=== PATIENT | female | born 1950 | race Caucasian/White ===

== ENCOUNTER 2018-10-20 05:15 | Inpatient (IN) ==
--- NOTE | 2018-10-14 16:43 | EKG Report ---
Test Performed on : 10/14/2018 3:43:02 PM Test Reason : PAT Blood Pressure : / mmHG Vent. Rate : 078 BPM Atrial Rate : 078 BPM P-R Int : 132 ms QRS Dur : 072 ms QT Int : 406 ms P-R-T Axes : 074 031 069 degrees QTc Int : 462 ms Normal sinus rhythm. Nonspecific T wave abnormality Abnormal ECG When compared with ECG of 15-NOV-2013 11:51, Nonspecific T wave abnormality no longer evident in Inferior leads Nonspecific T wave abnormality, worse in Lateral leads Confirmed by Pete BRIZUELA, Mika Velasco ([id number]) on 10/15/2018 7:11:35 AM
[2018-10-20] MEDS ORDERED: KEFZOL 1 GM/D5W 1 GM/50 ML IVPB ONE (06:01)
[2018-10-20] MEDS ORDERED: LR 1,000 ML ONE (06:01)
[2018-10-20] MEDS ORDERED: DIPRIVAN 1% ONE (06:39)
[2018-10-20] MEDS ORDERED: XYLOCAINE-MPF 2% ONE (06:40)
[2018-10-20] MEDS ORDERED: ROBINUL ONE (06:40)
[2018-10-20] MEDS ORDERED: SENSORCAINE-MPF 0.5%/EPI 1:200,000 ONE (06:44)
[2018-10-20] MEDS ORDERED: NS 0 ML ONE (06:44)
[2018-10-20] MEDS ORDERED: NS 250 ML ONE (06:47)
[2018-10-20] MEDS ORDERED: VERSED ONE (06:47)
[2018-10-20] MEDS ORDERED: XYLOCAINE 1% ONE (06:58)
[2018-10-20] MEDS ORDERED: ZOFRAN IV ONE (07:30)
[2018-10-20] MEDS ORDERED: ZOFRAN IV PRN (08:40)
[2018-10-20] MEDS ORDERED: NORCO-7.5 PO PRN (08:40)
[2018-10-20 11:47] LABS: BASO# 0.02 X1000 (0.0-0.2); BASO% 0.1 % (0.0-0.8); HEMOGLOBIN 11.8 g/dL (12.0-16.0); IMM GRAN# 0.07 X1000 (0.0-0.04); IMM GRAN% 0.4 % (0.0-0.5); LYMPH# 1.69 X1000 (1.2-3.4); LYMPH% 9.6 % (20.5-51.1); MCH 30.2 PG (27-31); MCHC 31.9 g/dL (33-37); MCV 94.6 FL (81-99); MONO# 0.51 X1000 (0.11-0.59); MONO% 2.9 % (1.7-9.3); PLT 345 X1000 (130-400); RBC 3.91 XMIL (4.2-5.4); RDW 14.8 % (11.5-14.5); WBC 17.69 X1000 (4.8-10.8)
[2018-10-20 11:48] LABS: INR 1.04; PROTIME 14.4 Seconds (11.0-16.0)
[2018-10-20 11:49] LABS: PTT 26.2 Seconds (22.3-41.8)
[2018-10-20 11:52] LABS: ALLEN TEST YES; BE -2.6 mmoll (-3.0-3.0); BLOOD TYPE ARTERIAL; HCO3-(ACT) 22.8 mmoll (20.0-26.0); METHB 0.6 % (0.0-1.5); O2(CT) 18.7 mL/dL (15.0-23.0); O2HB 92.6 % (95.0-99.0); PCO2(98.6) 36 mmHg (35-45); PO2(98.6) 67 mmHg (60-100); SAMPLE BLOOD; SAO2 94.4 % (95.0-100.0); THB 14.4 g/dL (11.5-17.4); pH(98.6) 7.39 (7.35-7.45)
[2018-10-20 11:54] LABS: MODALITY CANNULA
[2018-10-20 12:06] LABS: ALB/GLOB RATIO 0.5; ALBUMIN 2.5 g/dL (3.5-5.0); CALCIUM 8.4 mg/dL (8.8-10.2); CREATININE 1.1 mg/dL (0.5-0.9); MAGNESIUM 2.3 mg/dL (1.5-2.7); POTASSIUM 4.6 mmol/L (3.5-5.1); TOTAL BILIRUBIN 0.3 mg/dL (0.20-1.00); TOTAL PROTEIN 7.4 g/dL (6.3-8.3)
[2018-10-20 12:21] LABS: BANDS 2 % (0-1); LYMPHS 6 % (21-51); SEGS 92 % (42-75)
[2018-10-20 12:25] LABS: FREE T4 1.38 ng/dL (0.93-1.70)
--- NOTE | 2018-10-20 12:47 | EKG Report ---
Test Performed on : 10/20/2018 12:30:11 PM Test Reason : rythm evaluation Blood Pressure : / mmHG Vent. Rate : 069 BPM Atrial Rate : 069 BPM P-R Int : 150 ms QRS Dur : 066 ms QT Int : 494 ms P-R-T Axes : 083 007 039 degrees QTc Int : 529 ms Normal sinus rhythm. Nonspecific ST and T wave abnormality Abnormal ECG When compared with ECG of 14-OCT-2018 15:43, Nonspecific T wave abnormality now evident in Inferior leads QT has lengthened Confirmed by Pete BRIZUELA, Mika Velasco ([id number]) on 10/21/2018 7:02:24 AM
--- NOTE | 2018-10-20 13:20 | Diag Imaging Result Doc PS360 ---
EXAM: CHEST-2 VIEWS HISTORY: hypoxia TECHNIQUE: Chest two views COMPARISON: 09/21/2018 FINDINGS: The lungs are well expanded. The heart is not enlarged. Interval placement of a right jugular portacatheter. The tip lies in the superior vena cava just above the clavicle. No pneumothorax. No change in the right paratracheal/perihilar mass. The vessels are not distended. There are no infiltrates. No pleural effusions. IMPRESSION: No postprocedural pneumothorax. Electronically signed by Tee Jimenez 10/20/2018 1:17 PM
[2018-10-20] MEDS: DUONEB (A & A) INH SCH ×4 (15:21→23:49)
[2018-10-20] MEDS: TESSALON PO PRN ×2 (17:22→20:23)
[2018-10-20] MEDS ORDERED: ROCEPHIN 1 GM in NS 50 ML IV SCH (17:30)
--- NOTE | 2018-10-20 17:54 | HISTORY AND PHYSICAL ---
This is a patient of mine I have known for over 20 years. Recently discovered she has right almost midline lung cancer and she was sent over to get a venous port. Noted she was very short of breath. We are going to need to try and get her some oxygen at home. They are trying to keep going on chemotherapy fairly quickly given the quick advance of the tumor and also involving the central structures. PAST MEDICAL HISTORY: 1. Status post vaginal hysterectomy in 1975. 2. History of hypertension. 3. 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 4. Sepsis DIC prolonged hospitalization back in the and had significant vascular arterial insufficiency I think in her left leg. performed some surgery and she made remarkable recovery. 5. Left lower extremity ischemia secondary DIC status post arterial bypass per . 6. Osteoarthritis. 7. Depression and anxiety. 8. Recent discovery of lung cancer. ALLERGIES: No known drug allergies. FAMILY HISTORY: Father at 60 myocardial infarction, mother fair state of health lived to advanced age, history of heart problems in father mother, history diabetes mother and father, maternal grandfather, history of colon cancer in maternal aunt. No history of breast cancer. SOCIAL HISTORY: Born in [facility] lived here most her life. She is 2 children. REVIEW OF SYSTEMS: General: She has loss of appetite, she has had more confusion in the last couple months probably related to some of the pain medicines and increased work of breathing or dyspnea on exertion. Cardiovascular: No chest pain or tachy palpitation. GI and : No gross hematuria, dysuria. Musculoskeletal endocrinologic: No significant history. EXAM: Afebrile, temperature 97.6 degrees, pulse 70, respirations 20, blood pressure 143/70. Pupils are equal and round.Lungs: Clear in all lung fajardo. Cardiovascular: Regular rhythm and rate. Abdomen: Soft, nondistended. She is got tachypnea and she does not have any wheezing but there is prolonged end expiratory phase. LAB: White count 17,690, hematocrit 37, platelet count 345,000, sodium 136, potassium 4.6, chloride 104, BUN 20, creatinine 1.1. AST was 30, ALT was 13, alkaline phosphatase 150. TSH is 0.52, T4 is 1.38, PT is 14.4. Blood gases pH is 7.39, pCO2 36, PO2 67, O2 saturation was 94%. Chest x-ray no postprocedural pneumothorax. Is right peritracheal repair hilar mass vessels not distended. ASSESSMENT AND PLAN: 1. New central hilar mass lung cancer. It looks like it is apparently non-small cell. Her jugular Port-A-Cath the tip lies in the superior vena cava just above the clavicle. There is no pneumothorax but she does have a peritracheal parahilar mass on the right. Is possibility of postobstructive pneumonia. She has hypoxemia so we are going to see if we get her supplemental O2. I think we better go ahead and treat her for pneumonia. I will put her on ceftriaxone 1 g now then q.24 hours and will get home health to see or social service see if we can arrange for her to have some supplementary O2. cc: Nilo Dwyer MD
--- NOTE | 2018-10-20 18:01 | OPERATIVE NOTE ---
PROCEDURE DATE: 10/20/2018 PREOPERATIVE DIAGNOSIS: Tracheal cancer. POSTOPERATIVE DIAGNOSIS: Tracheal cancer. PROCEDURE PERFORMED: Ultrasound-guided right internal jugular vein port placement, fluoroscopy less than 1 hour. ESTIMATED BLOOD LOSS: 10 mL. SPECIMENS: None. ANESTHESIA: MAC with local. INDICATION: This is a 67-year-old female with tracheal cancer who plans to undergo adjuvant therapy. OPERATIVE FINDINGS: 1. Ultrasound of the right neck showed a compressible internal jugular vein with no evidence of intraluminal thrombus. 2. Final fluoroscopic image showed good position of the catheter in the superior vena cava-atrial junction with no evidence of complication or postprocedural pneumothorax. OPERATIVE NOTE: Risks, benefits, alternatives were discussed with the patient. She consented to the procedure. She was seen preoperatively and surgical site was confirmed. She was taken to the operating room, placed in the supine position, and IV anesthesia was administered. Bilateral neck and chest were prepped Betadine and draped in the usual fashion. Preincision antibiotics were confirmed. After a time-out, focused ultrasound was performed of the right neck. She was in Trendelenburg position. We accessed the internal jugular vein on the first pass. Dark, nonpulsatile venous blood was noted on return. The wire threaded easily and was confirmed on fluoroscopy to be in the right side of the heart. We did also confirm that it coursed directly into the vein prior to dilation of the catheter. We then created a subcutaneous pouch 2 fingerbreadths below the level of the clavicle and tunneled the catheter into incision from the chest to the incision made large in the neck. The tract was serially dilated and a catheter was advanced to the right side of the heart [*] good position. It was cut and trimmed and connected to the port with a fashion photographer device and placed in the subcutaneous pouch which was secured with Prolene suture 2-0. Confirmed that the port withdrew blood and flushed without resistance. Final fluoroscopic image was appropriate. We then closed the deep dermis with interrupted 3-0 Vicryl sutures. Skin was closed with 4-0 Monocryl. For both the neck and chest Dermabond was applied. Counts correct. She woken and transferred to the recovery room. I spoke with the family. cc: MD Nilo Son MD
[2018-10-20] MEDS: PULMICORT INH SCH (20:04)
[2018-10-20] MEDS: KLONOPIN PO SCH (20:22)
[2018-10-20] MEDS: XANAX PO SCH (20:23)
[2018-10-21] MEDS: DUONEB (A & A) INH SCH ×6 (04:24→23:40)
[2018-10-21 07:38] LABS: BASO# 0.04 X1000 (0.0-0.2); BASO% 0.2 % (0.0-0.8); EOS# 0.07 X1000 (0.0-0.7); EOS% 0.3 % (0.0-10.0); HEMATOCRIT 38.2 % (37.0-47.0); HEMOGLOBIN 12.1 g/dL (12.0-16.0); IMM GRAN# 0.06 X1000 (0.0-0.04); IMM GRAN% 0.3 % (0.0-0.5); LYMPH# 1.95 X1000 (1.2-3.4); LYMPH% 9.1 % (20.5-51.1); MCH 30.3 PG (27-31); MCHC 31.7 g/dL (33-37); MCV 95.5 FL (81-99); MONO# 0.28 X1000 (0.11-0.59); MONO% 1.3 % (1.7-9.3); MPV 10.3 FL (7.4-10.4); NEUT# 18.99 X1000 (1.4-6.5); NEUT% 88.8 % (42.2-75.2); PLT 307 X1000 (130-400); RDW 15.3 % (11.5-14.5); WBC 21.39 X1000 (4.8-10.8)
[2018-10-21 07:49] LABS: INR 1.1; PROTIME 15.1 Seconds (11.0-16.0); PTT 28.5 Seconds (22.3-41.8)
[2018-10-21 08:28] LABS: ALB/GLOB RATIO 0.5; ALBUMIN 2.6 g/dL (3.5-5.0); CALCIUM 8.9 mg/dL (8.8-10.2); CREATININE 1.1 mg/dL (0.5-0.9); POTASSIUM 4.7 mmol/L (3.5-5.1); TOTAL BILIRUBIN 0.55 mg/dL (0.20-1.00); TOTAL PROTEIN 7.4 g/dL (6.3-8.3)
[2018-10-21] MEDS: PERIDEX MT SCH ×2 (09:05→20:35)
[2018-10-21] MEDS: XANAX PO SCH ×2 (09:05→20:35)
[2018-10-21] MEDS: ZOLOFT PO SCH (09:05)
[2018-10-21] MEDS: COZAAR PO SCH (09:05)
[2018-10-21] MEDS: PULMICORT INH SCH ×2 (09:08→19:51)
[2018-10-21 09:59] LABS: BANDS 4 % (0-1); LYMPHS 2 % (21-51); SEGS 94 % (42-75)
[2018-10-21] MEDS: TESSALON PO PRN (10:04)
--- NOTE | 2018-10-21 13:02 | PROGRESS NOTE ---
DATE: 10/21/2018 SUBJECTIVE: Ms. Lujan appears to be aspirating when she drinks fluids. When she tries to eat, her lungs sound gurgly, so, I am going to keep her here, and I am going to ask Dr. Jose and Dr. Camargo their opinion on whether she needs PEG tube. She has a lung mass that is pressing on, I think, the central structures, and I will do a barium swallow and look at that. OBJECTIVE: Vital Signs: Temperature 98.7 degrees, pulse 84, respirations 16, blood pressure 125/60. Pupils are equal and round. Lungs are clear in all lung fajardo. Cardiovascular: Regular rhythm and rate without murmur or S3. Abdomen is soft. Skin is warm and dry. White count was up to 21,390. Her lungs are scattered rhonchi throughout all lung fajardo but it will clear some when she coughs. Cardiovascular: Regular rhythm and rate without murmur or S3. Abdomen is soft. ASSESSMENT AND PLAN: 1. She had a venous port placed, and she had some hypoxemia, so she is on O2. Concerned about aspiration. I am going to go ahead and put her empirically on some antibiotics. I will have her on ceftriaxone. I probably will change that to Zosyn. We will get a barium swallow, and we will consider what we need to do whether she needs PEG tube. 2. Lung cancer. Lung mass. Dr. Camargo has been following. Dr. Jose as well. It is non-small cell lung cancer. It is a peritracheal and perihilar mass on the right. Concerned about aspiration pneumonia and possibly even some postobstructive process. cc: Nilo Dwyre MD
--- NOTE | 2018-10-21 13:57 | Diag Imaging Result Doc PS360 ---
EXAM: CHEST-PORTABLE 10/21/2018 HISTORY: aspiration TECHNIQUE: AP portable at 1348 COMMENT: There is a large right paratracheal mass. There is a port on the right with its tip either in the distal internal jugular vein or innominate vein. There is ill-defined opacity over the left lower lobe which was not present on 10/20/2018. IMPRESSION: Left lower lobe pneumonia. Electronically signed by Luis Eduardo Munoz 10/21/2018 1:54 PM
[2018-10-21] MEDS ORDERED: ZOSYN ONE (14:18)
--- NOTE | 2018-10-21 14:25 | Diag Imaging Result Doc PS360 ---
BA SWALLOW-ESOPHAGUS - 10/21/2018 INDICATION: trouble swallowing TECHNIQUE: Double contrast esophagram. Total fluoroscopy time was 49 seconds. 61 images were obtained. COMPARISON: Chest CT 09/22/2018 FINDINGS: The large right paratracheal mediastinal mass is causing significant stricture of the esophagus at the level of the aortic arch. This is causing some delay in clearance of the hypopharynx and proximal esophagus. Distally, there is some tertiary wave formation compatible with presbyesophagus. No distal strictures or masses. The gastroesophageal junction is normally located. IMPRESSION: High-grade stricture of the esophagus from extrinsic compression from the large superior mediastinal mass. Electronically signed by Phil Lozoya 10/21/2018 2:23 PM
[2018-10-21] MEDS ORDERED: BLISTEX MEDICATED BERRY LIP BALM TOP PRN (18:03)
[2018-10-21] MEDS: CLINIMIX E 4.25%-5% SOLUTION 1,000 ML IV SCH (18:23)
[2018-10-21] MEDS: ZOSYN 3.375 GM in NS 50 ML IV SCH ×2 (18:23→23:54)
[2018-10-21] MEDS: ATIVAN IV PRN (20:31)
[2018-10-21] MEDS: KLONOPIN PO SCH (20:32)
--- NOTE | 2018-10-21 21:40 | PULMONOLOGY CONSULTATION ---
DATE: 10/21/2018 REQUESTING PHYSICIAN: Dr. Nilo Dwyer. REASON FOR CONSULTATION: Possible aspiration. HISTORY OF PRESENT ILLNESS: Ms Lujan is a 67-year-old white female who was recently diagnosed with stage III squamous cell carcinoma of the lung. Tumor involves the trachea, mediastinum, and right mainstem bronchus. She was having difficulty with emesis. She has been initiated on liquids. She was recently in the outpatient setting for a port placement but could not be discharged due to hypoxemia. She continues to have difficulty with swallowing. PAST MEDICAL HISTORY/PROBLEM LIST: 1. Stage IIIA squamous cell carcinoma, as per above. 2. Status post recent port placement. 3. Peripheral vascular disease with femoral artery surgery. 4. History of TIA versus CVA in 1994. 5. Status post partial hysterectomy. 6. Hypertension. 7. Sinusitis. 8. Depression. 9. Osteoarthritis. 10. History of prolonged hospitalization with DIC following revascularization of a lower extremity. SOCIAL HISTORY: The patient has a 83-mpic-pyla history for tobacco. No significant alcohol use. FAMILY HISTORY: Positive for diabetes, coronary artery disease, and a brother who in a motor vehicle accident. REVIEW OF SYSTEMS: Notable for cough, difficulty with swallowing, shortness of breath, generalized weakness, and fatigue. PHYSICAL EXAMINATION: General: Reveals a well-developed, well-nourished, white female with audible rhonchi. Vital signs: She has been afebrile for the last 24 hours. Blood pressure 125/60, heart rate 84, respiratory rate 16, oxygen saturation 97% on 3 L per nasal cannula. HEENT: Pupils are equal and reactive. Oropharynx is clear. Neck: Supple. Chest: Reveals audible rhonchi bilaterally. Cardiac: S1, S2. Abdomen: Soft. Extremities: Without edema. DIAGNOSTIC STUDIES: Barium swallow was performed which reveals high-grade stricture of the esophagus with significant delay of contrast through the stricture. Chest x-ray reveals right paratracheal mass along with a new left lower lobe pneumonia. IMPRESSION: 1. Stage III lung cancer. 2. Esophageal stricture due to the lung mass. 3. Aspiration pneumonia. 4. Acute hypoxemic respiratory failure. The patient has not yet initiated radiation therapy. I suspect that she will not be able to obtain adequate p.o. intake when her radiation therapy has been initiated. She would benefit from radiation to the right mainstem/right upper lobe, and this is currently being evaluated by Dr. De Leon. I suspect that she will need alternative nutrition, and a PEG tube should be considered. He may be difficult to place with her esophageal stricture and might require a surgical intervention. RECOMMENDATIONS: 1. Consider PEG tube as outlined above. 2. Continue oxygen for hypoxemic respiratory failure. 3. Continue antibiotics for aspiration pneumonia. 4. Maintain head of bed elevation at 30 degrees at all time. cc: MD Nilo Otero MD
[2018-10-21] MEDS: MORPHINE IV PRN (23:59)
[2018-10-22] MEDS: CLINIMIX E 4.25%-5% SOLUTION 1,000 ML IV SCH (03:43)
[2018-10-22] MEDS: DUONEB (A & A) INH SCH ×3 (03:45→11:07)
[2018-10-22] MEDS: MORPHINE IV PRN ×2 (04:57→10:25)
[2018-10-22] MEDS ORDERED: LASIX IV ONE (05:56)
[2018-10-22] MEDS: ZOSYN 3.375 GM in NS 50 ML IV SCH ×2 (06:10→11:37)
[2018-10-22 06:15] LABS: ALLEN TEST YES; BE -0.2 mmoll (-3.0-3.0); BLOOD TYPE ARTERIAL; HCO3-(ACT) 24.7 mmoll (20.0-26.0); MODALITY VENTIMASK; PCO2(98.6) 37 mmHg (35-45); PO2(98.6) 79 mmHg (60-100); SAMPLE BLOOD; pH(98.6) 7.42 (7.35-7.45)
[2018-10-22] MEDS: PULMICORT INH SCH (07:45)
[2018-10-22 09:10] LABS: BASO# 0.03 X1000 (0.0-0.2); BASO% 0.1 % (0.0-0.8); EOS# 0.02 X1000 (0.0-0.7); EOS% 0.1 % (0.0-10.0); HEMATOCRIT 35.7 % (37.0-47.0); HEMOGLOBIN 11.3 g/dL (12.0-16.0); IMM GRAN% 0.5 % (0.0-0.5); LYMPH# 1.26 X1000 (1.2-3.4); LYMPH% 6.1 % (20.5-51.1); MCH 30.3 PG (27-31); MCHC 31.7 g/dL (33-37); MCV 95.7 FL (81-99); MONO# 0.18 X1000 (0.11-0.59); MONO% 0.9 % (1.7-9.3); MPV 10.4 FL (7.4-10.4); NEUT# 19.21 X1000 (1.4-6.5); NEUT% 92.3 % (42.2-75.2); PLT 211 X1000 (130-400); RBC 3.73 XMIL (4.2-5.4); RDW 15.4 % (11.5-14.5)
[2018-10-22 09:19] LABS: ALB/GLOB RATIO 0.6; ALBUMIN 2.4 g/dL (3.5-5.0); CALCIUM 8.8 mg/dL (8.8-10.2); CREATININE 1.1 mg/dL (0.5-0.9); POTASSIUM 4.5 mmol/L (3.5-5.1); TOTAL BILIRUBIN 1.46 mg/dL (0.20-1.00); TOTAL PROTEIN 6.7 g/dL (6.3-8.3)
[2018-10-22 09:30] LABS: LYMPHS 4 % (21-51); SEGS 96 % (42-75)
--- NOTE | 2018-10-22 09:47 | PROGRESS NOTE ---
DATE: 10/22/2018 SUBJECTIVE: She has had increased struggling to breathe and hypoxemia, and we have had to increase her FiO2. Concerned about aspiration pneumonitis. I am going to move her to the ICU. At this point, she wants to talk to her daughter but she does not want to be intubated and I think wants to probably pursue comfort measures. OBJECTIVE: Vital Signs: Temperature 98.2 degrees, pulse 89, respirations 20, blood pressure 94/49. Urine output was 1800 mL. HEENT: Pupils are equal and round. Lungs: Scattered rhonchi. Prolonged expiratory phase throughout both lung fajardo. LABORATORY DATA: White count elevated at 20,800, hematocrit 35, platelet count 211,000. ASSESSMENT AND PLAN: Stage IIIA squamous cell carcinoma, status post port placement. We have not initiated radiation treatment. I suspect we will not be able to get adequate p.o. intake. When her radiation therapy is initiated, she may benefit from radiation to the right main stem upper lobe, and this is currently being evaluated by Dr. De Leon. She may need alternate nutrition. We may need to pursue percutaneous endoscopic gastrostomy tube. Will have Dr. Jose weigh in as well. She is having trouble with swallowing and respiratory status has deteriorated, so I will move her to the unit and continue supplementary O2, and see what the oncologist would like to do. cc: Nilo Dwyer MD
[2018-10-22] MEDS: ATIVAN IV PRN (10:27)
[2018-10-22] MEDS: COZAAR PO SCH (10:46)
[2018-10-22] MEDS: XANAX PO SCH (10:47)
[2018-10-22] MEDS: ZOLOFT PO SCH (10:47)
[2018-10-22] MEDS: PERIDEX MT SCH (10:47)
[2018-10-22 11:47] VITALS: BP 114/54
--- NOTE | 2018-10-22 13:03 | HEMO/ONC CONSULTATION ---
DATE: 10/22/2018 CHIEF COMPLAINT: We are being consulted for further management of her squamous cell carcinoma of the right upper lobe and involving the trachea. HISTORY OF PRESENT ILLNESS: Ms. Lujan is a 67-year-old female, who was recently diagnosed with stage III squamous cell carcinoma of the lung. The patient has tumor that involves the trachea, mediastinum, and the mainstem bronchus. The patient has been having significant amounts of emesis. The patient recently came to the hospital as an outpatient setting for port placement. But due to hypoxemia, patient was unable to be discharged to home. The patient continues to have difficulty with swallowing. Patient has been started on liquids. Also, shortness of breath continues to get worse. The patient started is requiring more and more oxygen at this time. Ms. Lujan follows up in our clinic due to her recent diagnosis of squamous cell carcinoma of right upper lobe with involvement trachea and mediastinum. Recently, patient had a CT scan that revealed a 5.3 cm right suprahilar mass. Hepato CT scan revealed right upper lobe mediastinal mass without any distant metastasis. The patient had a bronchoscopy that revealed tumor in the distal trachea, right upper lobe. The patient was sent to the hospital as outpatient, so that she could have port placement, that way she could start chemotherapy and radiation soon. The patient was unable to be discharged due to her hypoxemia. PAST MEDICAL HISTORY: Stage 3 squamous cell carcinoma, peripheral vascular disease, TIA versus CVA in 1994, hypertension, sinusitis, depression, osteoarthritis, prolonged hospitalization with DIC. PAST SURGICAL HISTORY: Recent port placement, femoral artery surgery for peripheral vascular disease, partial hysterectomy. SOCIAL HISTORY: Forty-five pack-year history of tobacco use. No alcohol or illicit drug use. FAMILY HISTORY: Diabetes, coronary artery disease. ALLERGIES: No known drug allergies. HOME MEDICATIONS: Xanax, Tessalon Perles, Klonopin, codeine, Cozaar, Reglan, multivitamins, promethazine HCL, Zoloft, B complex, and zinc sulfate. REVIEW OF SYSTEMS: Patient has cough, difficulty swallowing, shortness of breath, generalized weakness, fatigue. PHYSICAL EXAM: Vital Signs: Temperature 98.2 degrees, heart rate 91, respiratory rate 20, blood pressure 94/49, sat 96% on Venturi mask. General: Patient is awake, lying in bed, extremely short of breath, audible wheezing noted. HEENT: Anicteric. Pupils PERRLA. Mucous membranes appear to be dry. Neck: Supple. Trachea midline. No JVD. Lymph node survey : No palpable lymphadenopathy. Chest: Bilateral breath sounds with rhonchi bilaterally, increased respiratory rate. Cardiovascular: S1, S2. Abdomen: Soft, nontender. Bowel sounds present all 4 quadrants. No hepatosplenomegaly noted. Neurologic: Alert and oriented x3. No focal deficits noted. LABORATORY DATA: White blood cell count 20.80, hemoglobin 11.3, hematocrit 35.7 , platelets are 211. Sodium 129, potassium 4.5, BUN 25, creatinine 1.1. Chest x-ray shows left lower lobe pneumonia. Barium swallow shows high-grade stricture of the esophagus from extrinsic compression from the large superior mediastinal mass. ASSESSMENT AND PLAN: 1. Stage III squamous cell carcinoma: The patient recently had port placement prepared for chemotherapy. The patient did receive her first treatment of carboplatin and Taxol radiation on 10/19/2017. Patient's respiratory status continues to decline. Patient has decided to proceed with comfort measures only. 2. Acute hypoxic respiratory failure: Continue oxygen and recommendations per Pulmonology. 3. Aspiration pneumonia: Continue antibiotics as ordered, per primary team and Pulmonology. 4. Nutritional status: It looks like patient will need a percutaneous endoscopic gastrostomy tube placement for further nutritional status. Dictated by RODERICK Sauceda for David Jose MD Patient seen and examined. Patient underwent Port-A-Cath placement. Unfortunately had an episode of aspiration. Her condition has rapidly declined. She and her family have decided to proceed with comfort measures at this time which is very reasonable. Questions were addressed at this time. Hospice has been consulted. David Jose M.D. cc: RODERICK Sauceda MD [facility] Schmidt, MD [facility]
--- NOTE | 2018-10-23 04:17 | PULMONOLOGY PROGRESS NOTE ---
DATE: 10/22/2018 SUBJECTIVE: The patient had increased dyspnea this morning. She was being evaluated for transferred to the ICU. After discussion with Dr. Dwyer, the patient decided that she did not to proceed with a feeding tube and did not want to be intubated, and requested initiation of comfort measures. The family and patient are considering inpatient admission to hospice. OBJECTIVE: Vital Signs: Blood pressure 114/54, heart rate 94, respiratory rate 24, oxygen saturation 94%. HEENT: Pupils are equal and reactive. Oropharynx is clear. Neck: Supple. Chest: Reveals coarse rhonchi bilaterally with decreased breath sounds at the right base. Cardiac: Exam with increased rate. Abdomen: Soft. Extremities: Without edema. IMPRESSION: The patient is a 67-year-old with stage III squamous cell carcinoma with involvement of the right mainstem bronchus, with stricturing of the esophagus and intermittent aspiration, with an aspiration pneumonia and acute hypoxemic respiratory failure. The patient's status continues to decline. She has elected comfort measures. PLAN: Continue comfort measures for severe lung cancer complicated by airway obstruction and esophageal stricture with aspiration at the patient and family's request. cc: MD Nilo Otero MD
== END 2018-10-22 14:01 | disposition hospice, inpatient (51) | DRG 981 ==
LOC: 4N 05:15 → OR 05:15
PROVIDERS: ADMIT Emergency Medicine; ATTEND Emergency Medicine
CPT/HCPCS: 71010; 71020; 71045; 71046; 74220; 77001; 80053; 82607; 82746; 82805; 83605; 83735; 84439; 84443; 85025; 85379; 85610; 85730; 87040; 93005; 93010; 94640; 94761; A9270; C1788; J0690; J0696; J1940; J2060; J2250; J2270; J2405; J2543; J7050; J7120

== ENCOUNTER 2018-10-22 14:01 | Inpatient (IN) ==
[2018-10-22] MEDS ORDERED: ZOFRAN IV PRN (14:35)
[2018-10-22] MEDS ORDERED: TYLENOL PR PRN (14:35)
[2018-10-22] MEDS: MORPHINE IV PRN ×3 (15:31→18:57)
[2018-10-22] MEDS: TRANSDERM-SCOP TD SCH (15:31)
[2018-10-22] MEDS: ATIVAN IV PRN ×7 (15:31→23:41)
--- NOTE | 2018-10-22 17:47 | PROGRESS NOTE ---
DATE: 10/22/2018 SUBJECTIVE: She is comfortable. We kept her on the 4th floor. Family is at the bedside and would like to just resume comfort measures. OBJECTIVE: General: Her weight is 131 pounds. Height 5 feet. HEENT: Pupils are equal and round. Lungs: Clear in all lung fajardo. She has some upper were airway gurgling, shallow respirations. Cardiovascular: Regular rhythm and rate without murmur or S3. Abdomen: Soft. Skin: Warm, dry. PLAN: Really not responding much at this point. We will give her some morphine as needed. cc: Nilo Dwyer MD
[2018-10-22] MEDS ORDERED: NARCAN IV PRN (20:04)
[2018-10-22] MEDS: LR 1,000 ML IV SCH (20:32)
[2018-10-22] MEDS: MORPHINE PCA IV PRN (20:34)
[2018-10-23] MEDS: ATIVAN IV PRN ×9 (00:46→21:31)
[2018-10-23] MEDS: ATROPINE 1 % OPHTH SOLN SL PRN ×3 (01:59→12:58)
[2018-10-23] MEDS ORDERED: DULCOLAX PR PRN (08:15)
[2018-10-23] MEDS: DUONEB (A & A) INH PRN ×4 (08:35→20:08)
[2018-10-23] MEDS ORDERED: DULCOLAX PR SCH (09:00)
--- NOTE | 2018-10-23 09:55 | PROGRESS NOTE ---
DATE: 10/23/2018 SUBJECTIVE: Ms. Lujan is comfortable. She is sleeping and breathing comfortably. Has O2 face mask. OBJECTIVE: Vital Signs: Temperature 99.3 degrees, pulse 86, respirations 18. Eyes: Pupils are equal and round. Lungs: Clear in all lung fajardo. Cardiovascular exam: Regular rhythm and rate without murmur or S3. Abdomen: Soft. Skin: Warm and dry. : Urine output is 950 mL. ASSESSMENT AND PLAN: Lung cancer. She would like just comfort measures. She has a stage III squamous cell carcinoma involving the right main stem bronchus. and then stricturing of the esophagus and intermittent aspiration. She has some aspiration pneumonitis. Continue comfort measures. cc: Nilo Dwyer MD
[2018-10-24] MEDS: MORPHINE PCA IV PRN (01:49)
[2018-10-24] MEDS: DUONEB (A & A) INH PRN ×2 (08:13→19:50)
--- NOTE | 2018-10-24 09:23 | PROGRESS NOTE ---
DATE: 10/24/2018 SUBJECTIVE: Ms. Lujan is comfortable. She is resting comfortably. Her daughter was in the room. She remains afebrile. OBJECTIVE: Vital Signs: Temperature 97.9 degrees, pulse 84, respirations 16, blood pressure 79/43. Eyes: Pupils were equal. Neck: No distended neck veins. Lungs: Clear in all lung fajardo anterolateral. Cardiovascular exam: Regular rhythm and rate without murmur or S3. Abdomen: Soft. Skin: Warm and dry. ASSESSMENT AND PLAN: 1. Lung cancer. She has stage III squamous cell cancer. She has a port placement preparing for chemotherapy. She did receive her first treatment of carboplatin and Taxol radiation on 10/19/2017, but she continued to decline. Increased respiratory difficulty and inability to swallow with aspiration. 2. Acute hypoxemic respiratory failure. Suspect aspiration pneumonia. 3. Aspiration pneumonia. 4. Nutritional status. She is unable to swallow. She just wants comfort measures and that is what the family desires. She underwent a Port-A-Cath placement, had aspiration pneumonia. We will continue her comfort measures. cc: Nilo Dwyer MD
[2018-10-24] MEDS: ATROPINE 1 % OPHTH SOLN SL PRN ×3 (10:10→22:56)
[2018-10-24] MEDS: ATIVAN IV PRN ×3 (16:03→22:56)
[2018-10-24] MEDS: LR 1,000 ML IV SCH (19:09)
[2018-10-25] MEDS: MORPHINE PCA IV PRN (07:27)
[2018-10-25] MEDS: ATIVAN IV PRN ×5 (07:37→21:35)
[2018-10-25] MEDS: ATROPINE 1 % OPHTH SOLN SL PRN ×3 (07:39→21:35)
--- NOTE | 2018-10-25 10:06 | PROGRESS NOTE ---
DATE: 10/25/2018 SUBJECTIVE: Ms. Lujan is comfortable, sleeping, appears to be breathing comfortably. She has not really responded much to family. OBJECTIVE: Vital Signs: Temperature 100.1 degrees, pulse 87, respirations 16, blood pressure 107/43. HEENT: Pupils are equal. Lungs: With scattered rhonchi but respiratory rate is 16 and respirations do not appear labored at this time. There is some upper airway secretions that I can appreciate, rattling. Lungs otherwise clear. Cardiovascular Examination: Regular rhythm and rate without murmur or S3. Abdomen: Soft. Skin: Warm and dry. ASSESSMENT AND PLAN: Squamous cell lung cancer, right-sided with midline involvement of the esophagus and the bronchus, significant dysphagia, and aspiration pneumonia. She just wants comfort measures. We will continue present measures. cc: Nilo Dwyer MD
[2018-10-25] MEDS: TRANSDERM-SCOP TD SCH (15:01)
[2018-10-25] MEDS: LR 1,000 ML IV SCH (18:49)
[2018-10-26 08:00] VITALS: BP 102/61
[2018-10-26] MEDS: ATIVAN IV PRN ×4 (09:05→16:52)
[2018-10-26] MEDS: ATROPINE 1 % OPHTH SOLN SL PRN ×3 (09:53→17:02)
--- NOTE | 2018-10-26 10:22 | PROGRESS NOTE ---
DATE: 10/26/2018 SUBJECTIVE: Ms. Lujan has not responded or woken up. Breathing has become a little more shallow and she is using external muscles in her neck and abdomen of her breathing. She has upper airway secretions. OBJECTIVE: Vital Signs: Temperature 98.7 degrees, pulse 100, respirations 14, blood pressure 102/61. Lungs: Otherwise clear anterolateral to auscultation. Cardiovascular Examination: Regular rhythm and rate without murmur or S3. Abdomen: Soft. Extremities: No pedal edema. PLAN: Continue comfort measures. No change. cc: Nilo Dwyer MD
[2018-10-26] MEDS: MORPHINE PCA IV PRN (15:46)
[2018-10-26] MEDS ORDERED: ATROPINE 1 % OPHTH SOLN SL PRN (17:30)
== END 2018-10-26 18:20 | disposition expired | DRG 180 ==
LOC: 4N 14:01
PROVIDERS: ADMIT Emergency Medicine; ATTEND Emergency Medicine
CPT/HCPCS: 94640; 94761; A9270; J2060; J2270; J2275; J7120; Q9974